=== PATIENT | female | born 1985 | race Caucasian/White ===

== ENCOUNTER 2018-07-03 23:31 | Emergency (ER) | payer SELFPAY ==
[2018-07-04] MEDS ORDERED: Ondansetron PF 4 MG/2 ML Vial ONE (01:09)
[2018-07-04] MEDS ORDERED: Ketorolac Tromethamine 30 MG/ML VIAL ONE (01:09)
[2018-07-04] MEDS ORDERED: Ondansetron ODT 4 MG TAB ONE (01:17)
--- NOTE | 2018-07-04 08:04 | CT ---
PRELIMINARY REPORT/[facility]/EMERGENTY AFTER-HOURS PROCEDURE CT Abdomen and Pelvis With Contrast EXAM DATE/TIME: 07/04/2018 12:01 AM CLINICAL HISTORY: 33 years old, female; Pain; Abdominal pain; Epigastric; Patient HX: [id number] presents to the ed via ems fr om another facility ed C/O nausea and persistent vomiting. Ed sent PT. For gi consult, all labs were negative. PT. Reports pain is localized to her epigastrum. TECHNIQUE: Axial computed tomography images of the abdomen and pelvis with intravenous contrast. Coronal reformatted images were created and reviewed. COMPARISON: No relevant prior studies available. FINDINGS: Lower thorax: Partially visualized 3 mm groundglass nodule within the periphery of the right middle lobe (series 2, image 1). ABDOMEN: Liver: Normal. Gallbladder and bile ducts: Gallbladder is surgically absent. Pancreas: Normal. Spleen: Normal. Adrenals: Normal. Kidneys and ureters: Normal. Stomach and bowel: Normal. Appendix: No evidence of appendicitis. PELVIS: Bladder: Unremarkable as visualized. Reproductive: 18 mm simple cyst within the right adnexa, likely right ovarian cyst. ABDOMEN and PELVIS: Intraperitoneal space: Small amount of pelvic free fluid, likely physiologic. Bones/joints: Multilevel thoracolumbar spine degenerative changes. Soft tissues: Normal. Vasculature: Phleboliths within the pelvis. Lymph nodes: Normal. No enlarged lymph nodes. IMPRESSION: 1. No acute abdominal or pelvic abnormality. 2. Partially visualized 3 mm groundglass nodule within the periphery of the right middle lobe (series 2, image 1). If patient does not have known cancer, follow up should be based on clinical informatio n because of the low risk of cancer in this age group. (Barry et al., Fleischner Society, 2017) Thank you for allowing us to participate in the care of your patient. Dictated and Authenticated by: Mikie Dotson MD 07/04/2018 12:32 AM Central Time ([place] & [place]) FINAL REPORT CT ABDOMEN AND PELVIS WITH IV CONTRAST: DATE: 07/04/2018. TIME: Performed on an emergency basis at 0003 hours. HISTORY: Abdominal pain. Nausea and vomiting. FINDINGS: Agree with the preliminary report by Dr. Dotson from [facility]. No evidence of bowel obstruc tion or other acute abnormality. Retroaortic left renal vein is noted. Tiny nonspecific noncalcifie d nodule is partially visualized at the anterolateral aspect of the right middle lobe of the lung on the superiormost image and is of doubtful clinical significance. POS: TPC
== END 2018-07-04 01:55 | disposition home or self-care (01) ==
LOC: ERS 23:31
DX: R11.2 Nausea with vomiting, unspecified (principal); R19.7 Diarrhea, unspecified; R91.1 Solitary pulmonary nodule; F17.210 Nicotine dependence, cigarettes, uncomplicated
CPT/HCPCS: 74177; 96372; J1885; J2405; Q0162

== ENCOUNTER 2018-07-04 04:38 | Emergency (ER) | payer SELFPAY ==
[2018-07-04] MEDS ORDERED: Haloperidol Lactate 5 MG/ML VIAL ONE (04:44)
[2018-07-04] MEDS ORDERED: diphenhydrAMINE 50 MG/ML VIAL ONE (07:29)
[2018-07-04] MEDS ORDERED: Metoclopramide HCl 10 MG/2 ML VIAL ONE (07:29)
[2018-07-04] MEDS ORDERED: Naproxen 500 MG TAB ONE (09:02)
== END 2018-07-04 09:11 | disposition home or self-care (01) ==
LOC: ERS 04:38
DX: R11.2 Nausea with vomiting, unspecified (principal); R19.7 Diarrhea, unspecified; F17.210 Nicotine dependence, cigarettes, uncomplicated
CPT/HCPCS: 96365; 96366; 96372; 96375; J1200; J1630; J2765

== ENCOUNTER 2018-08-19 22:39 | Emergency (ER) | payer SELFPAY ==
[2018-08-19] MEDS ORDERED: Ondansetron PF 4 MG/2 ML Vial ONE (23:29)
--- NOTE | 2018-08-19 23:56 | ULT ---
FPelvic ultrasound: INDICATIONS: Pelvic pain. Endovaginal ultrasound performed. Uterus has a normal appearance. The endometrial stripe is within normal range measured at 6 mm. Small amount of free fluid in the cul-de-sac. Both ovaries are identified. Color Doppler with spectral analysis demonstrates blood flow to both ova gurpreet. Normal-appearing follicles are seen. IMPRESSION: Small amount of free fluid in the cul-de-sac. Pelvic ultrasound otherwise unremarkable.
[2018-08-20] MEDS ORDERED: diphenhydrAMINE 50 MG/ML VIAL ONE (00:44)
[2018-08-20] MEDS ORDERED: Haloperidol Lactate 5 MG/ML VIAL ONE (00:44)
== END 2018-08-20 05:17 | disposition home or self-care (01) ==
LOC: ERS 22:39
DX: R10.31 Right lower quadrant pain (principal); Z87.891 Personal history of nicotine dependence
CPT/HCPCS: 76856; 96374; 96375; J1200; J1630; J2405

== ENCOUNTER 2018-08-25 21:12 | Observation (INO) | payer SELFPAY ==
[2018-08-25] MEDS ORDERED: Haloperidol Lactate 5 MG/ML VIAL ONE (22:52)
[2018-08-26] MEDS ORDERED: Acetaminophen 325 MG TAB PO PRN (00:45)
[2018-08-26] MEDS ORDERED: Lactated Ringer's 1,000 ML IV SCH (00:45)
[2018-08-26] MEDS: Ondansetron PF 4 MG/2 ML Vial IVP PRN ×3 (07:02→20:08)
[2018-08-26] MEDS: Sodium Chloride 0.9% 1,000 ML IV SCH ×2 (10:30→23:21)
[2018-08-26] MEDS ORDERED: Promethazine HCl 25 MG/ML VIAL IM/IV PRN (14:37)
--- NOTE | 2018-08-26 14:42 | PDOC.EVN ---
Event Note - Event Note Event Note: H&P #[id number]
[2018-08-26] MEDS: metroNIDAZOLE 500 MG in Premix Bag 1 BAG IVPB SCH ×2 (15:10→21:24)
[2018-08-26] MEDS: Promethazine HCl 25 MG in Sodium Chloride 0.9% 50 ML IVPB PRN (16:04)
[2018-08-26] MEDS ORDERED: GoLYTELY 4,000 ml Bottle PO SCH (18:30)
[2018-08-26] MEDS: Ketorolac Tromethamine 30 MG/ML VIAL IVP PRN (20:01)
[2018-08-26] MEDS: Zolpidem Tartrate 5 MG TAB PO PRN (20:08)
--- NOTE | 2018-08-26 21:40 | HP ---
ADMITTING COMPLAINT: Abdominal pain and nausea. HISTORY OF PRESENT ILLNESS: This is a 33-year-old female presenting with abdominal pain, nausea, vomiting. The patient states that she has been nauseous for about 3 to 4 days and unable the eat. States that she is having severe right-sided and suprapubic pain as well. Admits to a significant past medical history of abdominal surgeries in 2010 inclusive of gallbladder removal. Apparently, a gastric bypass and appendectomy, all of which were done in [facility] and the [facility] in [place] in 2010. The patient also admits to doing every and all types of drugs prior to 2000, apparently took LSD, PCP, methamphetamines, and cocaine. States that she smoked cannabis about 2 weeks ago, but other than that has not done anything since her kids were born since mid . The patient currently states that she is having abdominal pain every time she eats or drinks or moves around. States that the morphine has helped her with the pain and that she is allergic to tramadol, Toradol, and dicyclomine. The patient otherwise attests to a past medical history of anemia and anorexia and prior history of drug abuse and drug addiction in the past. ALLERGIES: DICYCLOMINE, TORADOL AND TRAMADOL. REVIEW OF SYSTEMS: All systems reviewed. Pertinent positives in HPI, otherwise negative. FAMILY HISTORY: Hypertension and diabetes. SOCIAL HISTORY: Prior drug user, sporadic smoker, and social drinker. HOME MEDICATIONS: See MAR. PHYSICAL EXAMINATION: VITAL SIGNS: Blood pressure 135/85, heart rate of 71, temperature of 98, respiratory rate of 16, O2 saturations 98% on room air. GENERAL: The patient is thin, lying in bed, in no acute discomfort. HEENT: Pupils are equal, round, and reactive to light and accommodation. Extraocular muscles intact. Severely poor dentition. NECK: Supple. Mobile, nontender thyroid. PULMONARY: Clear to auscultation bilaterally. No respiratory distress. CARDIOVASCULAR: Regular rate and rhythm. S1 and S2. No murmurs, rubs, or gallops appreciated. ABDOMEN: Positive bowel sounds. Soft, nontender, and nondistended. EXTREMITIES: 2+ peripheral pulses. No cyanosis, clubbing, or edema. NEUROLOGIC: Cranial nerves 2 through 12 intact. No loss of motor or sensory function. LABORATORY DATA: Reviewed. ASSESSMENT: 1. Colitis. 2. History of drug use. 3. Abdominal pain. 4. Nausea and vomiting. 5. Hypertension. PLAN: Keep the patient on observation for now. We will do IV fluids. We will start Rocephin and azithromycin as well with the Zofran and Phenergan half an hour to 1 hour prior to food intake. Start patient on full liquid diet. We will also obtain urine drug screen. The patient appears to have colitis on CT scan. GI has been consulted. Evaluation pending. At this point in time, the patient is feeling well, tolerating diet and remains afebrile with normal white count. Tomorrow, we will likely discharge with Jose Luis and Te[facility] to have the patient follow up with GI within 4-6 weeks for colonoscopy as outpatient. The patient wishes to remain a full code. Case and plan discussed with the patient at length. She understood and agreed with this plan. Job ID: [id number]
[2018-08-27] MEDS: Sodium Chloride 0.9% 1,000 ML IV SCH (01:19)
--- NOTE | 2018-08-27 01:29 | CON ---
DATE OF CONSULTATION: 08/26/2018 REASON FOR CONSULTATION: Abdominal pain, nausea, and vomiting. HISTORY OF PRESENT ILLNESS: Michelle Jennings is a 33-year-old woman, who was admitted to the hospital earlier today with complaints of severe right-sided abdominal pain and persistent nausea and vomiting over the past month. History is obtained from the patient's recollection. She tells me that back in 2010, she was having issues with her gallbladder and underwent cholecystectomy. She tells me that following the procedure, there was a problem with her bile duct, and at some point, she was told that her bile duct had been sewn off and completely closed. So, then she tells me that she underwent another surgery and had a gastric bypass procedure performed because of this. After she recovered from that surgery, she says she did very well for the past 8 years until the past month. She says before the past month, she had no chronic gastrointestinal symptoms at all. She was not taking any medications, but starting a month ago, she started having severe pain on the right side of her abdomen. This involves the entire right side diffusely and uniformly and really does not involve the left side at all. The pain can often get quite severe. It is associated with nausea and anytime she tries to eat or drink anything, the nausea will worsen and the pain will worsen as well. She has had repeated episodes of vomiting over the past month. With this, she has lost about 16 pounds. She denies any diarrhea or constipation. She says her bowel movements have slowed down, but she feels this is because she has really not been able to keep anything down. There is no melena or hematochezia. No documented fevers, though she says she often feels chills. Interestingly, she says that one of the only thing that helps is to get in a very hot shower or very hot bathtub or to lie on top of the heating pad. She tells me that she took just a couple of puffs from a joint of marijuana two weeks ago at a family gathering, but otherwise she does not use marijuana at all and she certainly has not used any over the past couple of weeks since that time. She is a former smoker, but quit that over a year ago. She has two children, ages 16 and 1. She has never undergone upper endoscopy or colonoscopy. She tells me that she does not take any medications on an outpatient basis. This is a bit discordant with medication list from different ER visits over the past month. She tells me that she has been prescribed lots of different things by different ER physicians, but she never ended up really taking any of them and the ones she tried have not helped at all. All she will admit to is Tylenol No. 3 and Zofran. Upon presentation, her laboratory studies are all completely unremarkable including CBC, CMP, LFTs, amylase, and lipase. test is negative. Urinalysis is positive for opiates and cannabinoids. Looking back at multiple ER presentations over the past month, her labs have always been unremarkable. She had a CT of the abdomen and pelvis on this presentation, and this did suggest some thickening in the mid to distal stomach and wall prominence in several loops of small bowel. The CT was performed without enteric contrast. Note that, prior CTs over the past month did not detail such findings, though they did detail suture material in the gastric wall and then several loops of small bowel. REVIEW OF SYSTEMS: Full review of systems including constitutional, head, eyes, ears, nose, throat, GI, , cardiovascular, respiratory, musculoskeletal, and neurologic systems is negative except as noted in the HPI. PAST MEDICAL HISTORY: Ovarian cyst. Cholecystectomy and appendectomy in 2010. Gastric bypass in 2010, she says as a result of complications from her cholecystectomy and biliary obstruction. ALLERGIES: ALLERGY LIST INCLUDES, 1. DICYCLOMINE. 2. KETOROLAC. 3. TRAMADOL. OUTPATIENT MEDICATIONS: The patient denies taking any outpatient medications except for Tylenol No. 3 and Zofran. INPATIENT MEDICATIONS: 1. Levofloxacin. 2. Flagyl. SOCIAL HISTORY: She is a former smoker. She has a history of drug abuse, but says she has been completely clean for many years. She says she smoked marijuana briefly just two weeks ago, but does not normally use marijuana and has not had any since then. FAMILY HISTORY: Negative for gastrointestinal illness or malignancy. PHYSICAL EXAMINATION: VITAL SIGNS: Temperature 98.2, blood pressure 154/78, pulse 84, and 98% oxygen saturation on room air. GENERAL: Thin, 33-year-old woman, lying in bed, in mild distress from abdominal pain. MENTAL: She is alert and oriented. She can give details of her history. SKIN: No jaundice. No rashes were palpable. EYES: No scleral icterus. Extraocular movements are intact. ENT: Mucous membranes are moist. No oral lesions. LYMPH: No submandibular or supraclavicular lymphadenopathy. Thyroid nontender to palpation. HEART: Regular rate and rhythm. LUNGS: Clear to auscultation bilaterally. ABDOMEN: Flat, nondistended. Multiple surgical scars, well healed. Bowel sounds are present. Exquisite tenderness to palpation along the entire right side of the abdomen. No significant tenderness to palpation in the left side of the abdomen. No guarding or rebound tenderness. EXTREMITIES: No peripheral edema. VESSELS: Radial pulses 2+ bilaterally. NEURO: Cranial nerves 2 through 12 are intact bilaterally. No focal deficits. LABORATORY STUDIES: WBC 7.8, hemoglobin 13.4, and platelets 254. Sodium 139, potassium 3.6, BUN 12, creatinine 0.77, and glucose 101. Urine test negative. Amylase 38, lipase 14, total bilirubin 0.4, alkaline phosphatase 53, AST 20, ALT 19, and albumin 4.2. Urine drug screen is positive for opiates and cannabinoids. IMAGING STUDIES: CT of the abdomen and pelvis without enteric contrast suggested thickening in the mid to distal stomach as well as wall prominence in several loops of small bowel. Gallbladder is absent and there is pneumobilia associated with prior cholecystectomy. 08/19/2018 transvaginal ultrasound was normal. 08/19/2018 CT scan did not demonstrate any thickening in the gastric or small bowel wall, though there was comment made about suture material in those areas. ASSESSMENT AND PLAN: 1. Nausea and vomiting, persistent over the past month. 2. Right-sided abdominal pain, also persistent over the past month. 3. Reported history of gastric bypass after complicated cholecystectomy in 2010. This is a difficult case. The patient has lost significant weight over the past month since symptoms started and this is concerning. She gives this history of multiple abdominal surgeries back in 2010, but on the other hand, reports no intervening symptoms in the past 8 years since then until current symptoms started. This CT finding of thickening in the stomach and several loops of small bowel may just be imaging artifact. On the other hand, certainly need to consider the development of peptic ulcer disease. The fact that she has such symptomatic improvement in a very hot shower is highly suggestive of cannabinoid hyperemesis syndrome, but on the other hand, she insists that she does not really use marijuana. We discussed that the next step in evaluation would certainly be diagnostic EGD, and I would perform colonoscopy as well. I am not sure if she will be able to tolerate the bowel preparation, but she will give it a try this evening and we will plan for the procedure tomorrow. Further recommendations to be based on the presence or absence of findings. Thank you for the consultation. Please call anytime with questions or concerns. Job ID: [id number]
[2018-08-27] MEDS: Ketorolac Tromethamine 30 MG/ML VIAL IVP PRN ×3 (04:44→19:14)
[2018-08-27] MEDS: Ondansetron PF 4 MG/2 ML Vial IVP PRN ×3 (04:46→21:38)
[2018-08-27] MEDS: metroNIDAZOLE 500 MG in Premix Bag 1 BAG IVPB SCH ×3 (05:00→21:10)
[2018-08-27 06:32] LABS: #Basophils 0.1 thou/uL (0.0-0.2); #Eosinphils 0.1 thou/uL (0.0-0.7); #Lymphocytes 1.7 thou/uL (1.20-3.40); #Monocytes 0.5 thou/uL (0.11-0.59); #Neutrophils 5.7 thou/uL (1.40-6.50); %Basophils 0.6 % (0.0-1.0); %Eosinophils 0.9 % (0.0-10.0); %Lymphocytes 21.4 % (21.0-51.0); %Neutrophils 71.1 % (42.0-75.0); Hemoglobin 12.7 g/dL (12.0-16.0); Mean Corpuscular HGB CONC 33.1 g/dL (32.0-36.0); Mean Corpuscular Hemoglobin 31.1 pg (27.0-31.0); Mean Platelet Volume 7.4 fL (7.4-10.4); Platelet Count 248 thou/uL (130-400); RBC Distribution Width 12.3 % (11.5-14.5); Red Blood Cell (RBC) Count 4.08 mill/uL (4.20-5.40); White Blood Cell (WBC) Count 8.1 thou/uL (4.8-10.8)
[2018-08-27 06:52] LABS: Anion Gap 16 mmol/L (10-20); BUN (Urea Nitrogen) 10 mg/dL (7.0-18.7); Calc. Creatinine Clearance 87 mL/min (70-130); Calcium 8.5 mg/dL (7.8-10.44); Carbon Dioxide 21 mmol/L (22-29); Chloride 103 mmol/L (98-107); Estimated GFR-MDRD Greater than 90; Glucose 65 mg/dL (70-105); Potassium 3.5 mmol/L (3.5-5.1); Sodium 136 mmol/L (136-145)
[2018-08-27] MEDS ORDERED: Fentanyl 100 MCG/2 ML VIAL ONE (06:56)
--- NOTE | 2018-08-27 11:49 | PDOC.PN ---
- Subjective Encounter Start Date: 08/27/18 Encounter Start Time: 11:48 Patient seen and examined, no new issues - Objective Vital Signs & Weight: Vital Signs (12 hours) Temp Pulse Resp BP Pulse Ox 08/27/18 08:00 97.8 F 67 16 111/66 96 Weight Weight 100 lb 1.438 oz I&O: 08/26/18 08/27/18 08/28/18 06:59 06:59 06:59 Intake Total 402 4050 Balance 402 4050 Result Diagrams: 08/27/18 05:57 08/27/18 05:57 Phys Exam - Physical Examination Constitutional: NAD HEENT: PERRLA, moist MMs Neck: no nodes, no JVD, supple Respiratory: no wheezing, no rales, no rhonchi Cardiovascular: RRR, no significant murmur, no rub Gastrointestinal: soft, non-tender, no distention Musculoskeletal: no edema, pulses present Dx/Plan (1) Abdominal pain Code(s): R10.9 - UNSPECIFIED ABDOMINAL PAIN Status: Acute (2) Colitis Code(s): K52.9 - NONINFECTIVE GASTROENTERITIS AND COLITIS, UNSPECIFIED Status : Acute (3) Nausea & vomiting Code(s): R11.2 - NAUSEA WITH VOMITING, UNSPECIFIED Status: Acute - Plan * s/p EGD, pending colonoscopy for now * bowel prep being given * scope in AM * cont abx * case and plan d/w patient at length, she understood and agreed with this plan.
--- NOTE | 2018-08-27 12:33 | OP ---
DATE OF PROCEDURE: 08/27/2018 FLIGHT TEST ENGINEER SURGEON: None. PROCEDURE PERFORMED: Esophagogastroduodenoscopy with biopsies. INDICATION: 1. Right-sided abdominal pain. 2. Nausea and vomiting. 3. Weight loss. 4. CT scan suggesting thickening in the distal stomach and small bowel. MEDICATIONS: See Anesthesia record. FINDINGS: After discussion of the risks, benefits, and alternatives of the procedure, informed consent was obtained and witnessed. Pre-endoscopic cardiopulmonary examination was satisfactory. Time-out was performed before sedation was achieved. Sedation was achieved with Anesthesia assistance in the endoscopy unit. A Pentax adult upper endoscope was placed into the oropharynx and passed through the cricopharyngeus under direct visualization. The esophageal mucosa appeared normal throughout with a normal-appearing Z-line. The endoscope was advanced into the stomach. Forward and retroflexed views of the entire gastric mucosa were obtained. There is a postoperative deformity in the mid gastric body along the anterior wall. The tissue was deformed and edematous, and there was exposed suture material in the area with a small associated ulceration. There is erythema and friability around this area as well as more generalized erythema and friability in the antrum and distal body of the stomach. Biopsies were obtained from the gastric antrum, body, and fundus to rule out H. pylori infection. The endoscope was advanced to the pylorus. There is a large amount of exposed suture material at the pylorus, but no evidence of any pyloric stricture or associated ulceration in this area. The endoscope was easily advanced beyond the pylorus and into the first and second portions of the duodenum, which appeared normal with normal bile in the area. The upper endoscope was completely withdrawn and the patient allowed to recover. The patient tolerated the procedure well. There were no immediate postprocedure complications. IMPRESSION: 1. Gastritis in the antrum and distal body of the stomach, biopsied to rule out Helicobacter pylori. 2. Postoperative deformity in the gastric body, with exposed suture material and small ulceration. 3. Exposed suture material at the pylorus. 4. Normal duodenum. 5. Normal esophagus. RECOMMENDATIONS: 1. Symptomatic treatment with antiemetics as needed. 2. We would have her on Protonix 40 mg twice daily. 3. Follow up results of gastric biopsies. 4. Advance diet as tolerated. 5. Avoid all substance abuse including marijuana. Again, the patient denies marijuana abuse, but her urine tested positive and her symptomatology seems highly consistent with cannabinoid hyperemesis syndrome, particularly the alleviation of symptoms with very hot showers or baths. Job ID: [id number]
[2018-08-27] MEDS: diphenhydrAMINE 25 MG CAP PO PRN ×2 (13:17→21:38)
[2018-08-27] MEDS: traMADol HCl 50 MG TAB PO PRN ×2 (13:17→21:38)
[2018-08-27 13:49] VITALS: BMI 16.6
[2018-08-27] MEDS ORDERED: PROPOFOL 200 MG/20 ML VIAL ONE (15:08)
[2018-08-27] MEDS: Promethazine HCl 25 MG in Sodium Chloride 0.9% 50 ML IVPB PRN (15:47)
[2018-08-27] MEDS: Morphine 2 MG/ML SYRINGE SLOW IVP PRN (15:56)
[2018-08-27] MEDS: Zolpidem Tartrate 5 MG TAB PO PRN (21:15)
[2018-08-28] MEDS: Ketorolac Tromethamine 30 MG/ML VIAL IVP PRN ×2 (01:29→09:12)
[2018-08-28] MEDS: Promethazine HCl 25 MG in Sodium Chloride 0.9% 50 ML IVPB PRN (01:30)
[2018-08-28] MEDS: Sodium Chloride 0.9% 1,000 ML IV SCH ×3 (01:37→21:15)
[2018-08-28] MEDS: Morphine 2 MG/ML SYRINGE SLOW IVP PRN ×2 (03:56→15:43)
[2018-08-28] MEDS: metroNIDAZOLE 500 MG in Premix Bag 1 BAG IVPB SCH ×2 (05:36→13:34)
[2018-08-28] MEDS: traMADol HCl 50 MG TAB PO PRN ×3 (06:41→23:16)
[2018-08-28] MEDS: Ondansetron PF 4 MG/2 ML Vial IVP PRN ×3 (09:52→21:49)
[2018-08-28] MEDS ORDERED: Polyethylene Glycol 3350 17 GM Packet PO SCH (13:15)
[2018-08-28] MEDS ORDERED: Mag-Al 1200 mg/1200 mg/30 ML UDCUP PO SCH (13:15)
--- NOTE | 2018-08-28 15:57 | PDOC.PN ---
- Subjective Encounter Start Date: 08/28/18 Encounter Start Time: 15:56 Subjective: c/o persistant abd pain -: no BM fo rlast 3 weeks per pt -: nauseated and not eating. - Objective MAR Reviewed: Yes Vital Signs & Weight: Vital Signs (12 hours) Temp Pulse Resp BP Pulse Ox 08/28/18 07:58 98.3 F 98 16 126/85 97 Weight Admit Weight 100 lb 1.438 oz Weight 100 lb 1.438 oz I&O: 08/27/18 08/28/18 08/29/18 06:59 06:59 06:59 Intake Total 4050 2112 Balance 4050 2112 Result Diagrams: 08/27/18 05:57 08/27/18 05:57 Additional Labs: Gastric Bx-NO H.Pylori.NL mucosa Phys Exam - Physical Examination Constitutional: NAD HEENT: PERRLA, moist MMs, sclera anicteric, oral pharynx no lesions Neck: no nodes, no JVD, supple, full ROM Respiratory: no wheezing, no rales, no rhonchi, clear to auscultation bilateral Cardiovascular: RRR, no significant murmur Gastrointestinal: soft, no distention, positive bowel sounds Musculoskeletal: no edema, pulses present Neurological: non-focal, normal sensation, moves all 4 limbs Psychiatric: normal affect, A&O x 3 Skin: no rash Dx/Plan (1) Nausea & vomiting Code(s): R11.2 - NAUSEA WITH VOMITING, UNSPECIFIED Status: Acute Comment: suspect Cannabis Hyperemesis syndrome> Pain relieved by hot showers (2) Abdominal pain Code(s): R10.9 - UNSPECIFIED ABDOMINAL PAIN Status: Acute Comment: suspect due to gastritis and constipation (3) Colitis Code(s): K52.9 - NONINFECTIVE GASTROENTERITIS AND COLITIS, UNSPECIFIED Status : Acute Comment: likely stercoral (4) H/O gastric bypass Code(s): Z98.84 - BARIATRIC SURGERY STATUS Status: Chronic Comment: Post cholecystectomy - Plan plan discussed w/ family, PT/OT, DVT proph w/SCDs DC Phergan,Toradol and Benadryl -: pt educated abou Cannbis Hyperemesis syndrome. -: will use PPI,Maalox,and good bowel regimen -: difficult to DC today w severe constipation.needs to have 1 BM before DC -: minimize naroctics * .Stop ABx as no clear evidence of infection Flagyl might be increasing the nausea. * Add probiotics * No Plans for colonoscopy per GI. Pt not able to tolerate prep anyways Review of Systems - Review of Systems Constitutional: weakness, malaise. negative: fever, chills, sweats, other Gastrointestinal: Nausea, Abdominal Pain, Constipation. negative: Vomiting, Diarrhea, Melena, Hematochezia, Other Genitourinary: negative: Dysuria, Frequency, Incontinence, Hematuria, Retention , Other Musculoskeletal: negative: Neck Pain, Shoulder Pain, Arm Pain, Back Pain, Hand Pain, Leg Pain, Foot Pain, Other Skin: negative: Rash, Lesions, Cecil, Bruising, Other Neurological: negative: Weakness, Numbness, Incoordination, Change in Speech, Confusion, Seizures, Other - Medications/Allergies Allergies/Adverse Reactions: Allergies Allergy/AdvReac Type Severity Reaction Status Date / Time dicyclomine [From Bentyl] Allergy Verified 08/26/18 06:36 tramadol Allergy Verified 08/27/18 12:51 ketorolac [From Toradol] AdvReac Mild Verified 08/27/18 02:18 Medications: Current Medications Levofloxacin 500 mg/ Device 100 mls @ 100 mls/hr IVPB Q24HR [facility] Last Admin: 08/28/18 09:13 Dose: 100 mls Metronidazole 500 mg/ Device 100 mls @ 100 mls/hr IVPB Q8HR [facility] Last Admin: 08/28/18 13:34 Dose: 100 mls Sodium Chloride (Normal Saline 0.9%) 1,000 mls @ 75 mls/hr IV .[id number] [facility] Last Admin: 08/28/18 14:49 Dose: Not Given Morphine Sulfate (Morphine) 2 mg SLOW IVP Q12H PRN PRN Reason: PAIN 7-10 Last Admin: 08/28/18 15:43 Dose: 2 mg Ondansetron HCl (Zofran) 4 mg IVP Q6H PRN PRN Reason: Nausea/Vomiting Last Admin: 08/28/18 15:43 Dose: 4 mg Pantoprazole Sodium (Protonix) 40 mg PO BID [facility] Last Admin: 08/28/18 09:13 Dose: 40 mg Promethazine HCl (Phenergan) 25 mg IM/IV Q6H PRN PRN Reason: Nausea/Vomiting Sodium Chloride (Flush - Normal Saline) 10 ml IVF Q12HR [facility] Last Admin: 08/28/18 08:55 Dose: Not Given Sodium Chloride (Flush - Normal Saline) 10 ml IVF PRN PRN PRN Reason: Saline Flush Tramadol HCl (Ultram) 50 mg PO Q8H PRN PRN Reason: Pain Last Admin: 08/28/18 15:13 Dose: 50 mg Zolpidem Tartrate (Ambien) 5 mg PO HSPRN PRN PRN Reason: Insomnia Last Admin: 08/27/18 21:15 Dose: 5 mg
[2018-08-28] MEDS ORDERED: Bisacodyl 10 MG SUPP PR SCH (16:00)
[2018-08-28] MEDS ORDERED: Bisacodyl 10 MG SUPP PR PRN (16:02)
[2018-08-28] MEDS ORDERED: Mag-Al 1200 mg/1200 mg/30 ML UDCUP PO PRN (21:00)
[2018-08-28] MEDS: Zolpidem Tartrate 5 MG TAB PO PRN (21:11)
[2018-08-29] MEDS: Morphine 2 MG/ML SYRINGE SLOW IVP PRN (03:24)
[2018-08-29] MEDS: Sodium Chloride 0.9% 1,000 ML IV SCH (07:49)
[2018-08-29] MEDS: Ondansetron PF 4 MG/2 ML Vial IVP PRN (07:52)
[2018-08-29] MEDS ORDERED: Saccharomyces boulardii 250 MG CAP PO SCH (09:00)
[2018-08-29 17:41] VITALS: BP 139/79; TEMP 98.2
--- NOTE | 2018-08-30 00:56 | DIS ---
DATE OF ADMISSION: 08/26/2018 DATE OF DISCHARGE: 08/29/2018 This is Jessica Watson PA-C dictating a report for Arcelia Severino MD. ALLERGIES: DICYCLOMINE, TRAMADOL, KETORALAC. CHIEF COMPLAINT: Nausea, vomiting, and right-sided abdominal pain. FINAL DIAGNOSES: 1. Vomiting secondary to cannabis hyperemesis syndrome. 2. Gastritis in antrum and distal body of stomach, biopsy negative for H pylori. 3. History of cholecystectomy and gastric bypass in 2010. 4. History of drug abuse and drug addiction in the past, with recent marijuana use. PROCEDURE PERFORMED: EGD with Dr. Sorensen, which revealed gastritis in the antrum and distal body of the stomach, which was biopsied, postoperative deformity in the gastric body with exposed suture material and small ulceration, exposed suture material in the pylorus, normal duodenum and normal esophagus. LABORATORY RESULTS: White blood cell count 8.1, hemoglobin 12.7, hematocrit 38.3, MCV 94, MCH 31, platelets are 248. Sodium 136, potassium 3.5, chloride 103, carbon dioxide 21, creatinine 0.65, estimated GFR greater than 90, glucose was 65. Lipase on 08/25 was 14. Amylase was 38. IMAGING RESULTS: Abdomen and pelvic CT scan with contrast performed on 08/25/2018, showed abnormal wall thickening of the stomach. There were also loops of unopacified small bowel with wall prominence, which was a new finding from her CT scan performed on 08/19/2018. CONSULTATIONS: Dr. Sorensen, GI. HOSPITAL COURSE: The patient is a 33-year-old female with past medical history significant for cholecystectomy and gastric bypass in 2010, and recent marijuana use, who presented to the hospital with an approximately 1-month history of nausea and vomiting along with associated abdominal pain. She stated that the abdominal pain was located primarily on the right side of her abdomen, and was exacerbated with eating and drinking. The patient reports an approximately 16-pound weight loss. She denied any diarrhea or constipation. She denied any fever or chills. She did say that hot shower or heating pad helped to relieve her pain. Given the new findings of antrum thickening on her CT, GI was consulted for further evaluation. The patient did undergo an EGD with Dr. Sorensen, which revealed the above findings. Gastritis was noted in the antrum and distal body of the stomach. Biopsies were taken, which revealed no evidence of H pylori. The patient's symptoms improved throughout her hospitalization. She did have some episode of constipation yesterday, but that too has resolved. The patient this morning has no complaints of abdominal pain. She denies any further nausea or vomiting. She did have a bowel movement this morning. She denies any chest pain or shortness of breath. PHYSICAL EXAMINATION: VITAL SIGNS: Blood pressure 116/80, temp is 98, pulse 91, respirations 16, O2 saturation is 97% on room air. GENERAL: The patient is a thin female who appears her stated age, in no acute distress. HEENT: Head is atraumatic and normocephalic. Mucous membranes are moist. The patient has extremely poor dentition. NECK: Trachea is midline. No JVD. No carotid bruits. CV: S1 and S2. Regular rate and rhythm. No appreciable murmurs, rubs, or gallops. LUNGS: Regular respiratory rate and pattern. Clear to auscultation bilaterally. ABDOMEN: Positive bowel sounds, soft, nontender. EXTREMITIES: No edema. +2 DP pulses bilaterally. SKIN: Warm and dry. No rashes. NEUROLOGIC: Cranial nerves 2 through 12 grossly intact. The patient is nonfocal. CONDITION AT DISCHARGE: Stable. DISCHARGE MEDICATIONS: Per Dr. Sorensen, the patient will be discharged on 40 mg of Protonix, which she will take twice daily. The patient will continue p.r.n. MiraLAX along with probiotic. DISCHARGE DISPOSITION: Home. PLAN: The patient has been counseled at length regarding the findings of her EGD. She has been counseled heavily on cannabis cessation, as this was the likely culprit of her symptoms. As mentioned, her symptoms have resolved, and she will be discharged home in good condition. Continue followup as an outpatient with primary care and GI. Care has been discussed with Dr. Severino, who agrees with the above. Job ID: [id number]
== END 2018-08-29 14:12 | disposition home or self-care (01) ==
LOC: ERS 21:12 → T4-B 08-26 00:35
PROVIDERS: ADMIT Family Medicine; ATTEND Family Medicine
PROC: 0DB78ZX Excision of Stomach, Pylorus, Via Natural or Artificial Opening Endoscopic, Diagnostic (ICD-10-PCS; principal; 2018-08-27)
DX: K29.70 Gastritis, unspecified, without bleeding (principal); T40.7X1A Poisoning by cannabis (derivatives), accidental (unintentional), initial encounter; R11.2 Nausea with vomiting, unspecified; F19.11 Other psychoactive substance abuse, in remission; K25.9 Gastric ulcer, unspecified as acute or chronic, without hemorrhage or perforation; K52.9 Noninfective gastroenteritis and colitis, unspecified; I10 Essential (primary) hypertension; R63.4 Abnormal weight loss; Z68.1 Body mass index [BMI] 19.9 or less, adult; Z87.891 Personal history of nicotine dependence; Z79.1 Long term (current) use of non-steroidal anti-inflammatories (NSAID); Z88.5 Allergy status to narcotic agent; Z88.8 Allergy status to other drugs, medicaments and biological substances; Z88.6 Allergy status to analgesic agent; Z98.84 Bariatric surgery status
CPT/HCPCS: 36415; 80048; 85025; 88305; 88312; 96361; 96365; 96366; 96367; 96374; 96375; 96376; G0378; J1630; J1885; J1956; J2270; J2405; J2550; J2704; J3010; J7050; Q0163